=== PATIENT | male | born 1980 | race Caucasian/White ===

== ENCOUNTER → 2021-08-31 | Outpatient (REF) ==
--- NOTE | 2021-08-31 16:19 | Diagnostic Imaging Report ---
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 EXAMINATION: Chest from 08/31/2021. FINDINGS: The cardiomediastinal silhouette is unremarkable. The pulmonary vasculature is within normal limits. The lungs and pleural spaces are clear. IMPRESSION: No evidence of an acute cardiopulmonary process. Dictated by: Dictated on workstation # [id number]
== END ==
LOC: OCC 15:53
PROVIDERS: ATTEND Family Medicine
DX: R76.11 Nonspecific reaction to tuberculin skin test without active tuberculosis (principal)
CPT/HCPCS: 71045